=== PATIENT | female | born 1970 | race Caucasian/White ===

== ENCOUNTER 2018-04-26 05:50 | Emergency (ER) | payer BC, OTHER ==
[2018-04-26] MEDS ORDERED: Aspirin 81 MG Tab.Chew PO ONE (06:12)
[2018-04-26] MEDS ORDERED: Sodium Chloride 0.9% 10 ML Syringe FLUSH PRN (06:12)
[2018-04-26] MEDS: Nitroglycerin 0.4 MG Tab.SL SL PRN ×2 (06:22→06:36)
[2018-04-26] MEDS ORDERED: Sodium Chloride 0.9% 1,000 ML IV ONE (06:26)
--- NOTE | 2018-04-26 06:34 | EDM.PDOC ---
ED HPI GENERAL MEDICAL PROBLEM - General Chief Complaint: Chest Pain Stated Complaint: chest pain Time Seen by Provider: 04/26/18 06:16 Source of Information: Reports: Patient, Significant Other History Limitations: Reports: No Limitations - History of Present Illness INITIAL COMMENTS - FREE TEXT/NARRATIVE: Patient presents with pressure across upper chest, pain in posterior left shoulder going down back of left arm, dyspnea, diaphoresis and nausea. This started at 0500 after she had done a light workout involving jumping jacks and sit-ups. This is the first workout she has done in several weeks; trying to get back into it. She has never had this before and she is a 1 ppd smoker for 35 years. No heart history. She rates the pressure at 4/10 and shoulder pain 4 /10 at their worst "very uncomfortable" and says the chest pressure has lessened to 2/10 prior to any nitro but after ASA 324mg. 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 Denies: Fever, Chills, Malaise, Weakness HEENT: Denies: Ear Pain, Throat Pain, Vision Change Respiratory: Reports: Shortness of Breath, Cough Cardiovascular: Reports: Chest Pain, Lightheadedness. Denies: Syncope Endocrine: Denies: Fatigue GI/Abdominal: Reports: Nausea. Denies: Abdominal Pain, Vomiting : Reports: No Symptoms Musculoskeletal: Reports: Shoulder Pain, Arm Pain, Back Pain. Denies: Neck Pain , Hand Pain, Leg Pain, Foot Pain Skin: Reports: Diaphoresis. Denies: Cyanosis, Jaundice, Mottled, Pallor Neurological: Denies: Confusion, Dizziness, Headache, Seizure, Syncope, Difficulty Walking, Change in Speech Psychiatric: Denies: Agitation, Anxiety, Confusion ED EXAM, GENERAL - Physical Exam Exam: See Below Exam Limited By: No Limitations General Appearance: Alert, WD/WN, Mild Distress Eye Exam: Bilateral Eye: EOMI, Normal Inspection, PERRL Ears: Normal External Exam, Hearing Grossly Normal Nose: Normal Inspection, No Blood Throat/Mouth: Normal Inspection, Normal Lips, Normal Voice, No Airway Compromise Head: Atraumatic, Normocephalic Neck: Normal Inspection, Full Range of Motion Respiratory/Chest: No Respiratory Distress, Lungs Clear, Normal Breath Sounds, No Accessory Muscle Use, Chest Non-Tender (palpation doesn't reproduce or exacerbate symptoms) Cardiovascular: Normal Peripheral Pulses, Regular Rate, Rhythm, No Murmur Peripheral Pulses: 2+: Carotid (L), Carotid (R), Radial (L), Radial (R) GI/Abdominal: Soft, No Distention Back Exam: Normal Inspection, Full Range of Motion Extremities: Normal Inspection, Normal Range of Motion, Non-Tender Neurological: Alert, Oriented, Normal Cognition, No Motor/Sensory Deficits Psychiatric: Normal Affect, Normal Mood, Anxious (mild) Skin Exam: Warm, Dry, Intact, Normal Color, No Rash Course - Vital Signs Last Recorded V/S: Last Vital Signs Temp 97.3 F 04/26/18 06:05 Pulse 64 04/26/18 06:55 Resp 18 04/26/18 06:55 BP 107/67 04/26/18 06:55 Pulse Ox 98 04/26/18 06:55 - Orders/Labs/Meds Orders: Active Orders 24 hr Category Date Time Status EKG Documentation Completion [RC] ASDIRECTED Care 04/26/18 06:11 Active CXR [Chest 1V Frontal] [CR] Stat Exams 04/26/18 06:47 Ordered Nitroglycerin [Nitrostat] Med 04/26/18 06:11 Active 0.4 mg SL Q5M PRN Sodium Chloride 0.9% [Saline Flush] Med 04/26/18 06:12 Active 10 ml FLUSH Q8HR PRN Saline Lock Insert [OM.PC] Routine Oth 04/26/18 06:12 Ordered EKG 12 Lead [EK] Routine Ther 04/26/18 06:10 Ordered Medication Orders Nitroglycerin (Nitrostat) 0.4 mg SL Q5M PRN PRN Reason: Chest Pain Last Admin: 04/26/18 06:36 Dose: 0.4 mg Admin: 04/26/18 06:22 Dose: 0.4 mg Sodium Chloride (Saline Flush) 10 ml FLUSH Q8HR PRN PRN Reason: keep vein open Labs: Laboratory Tests 04/26/18 04/26/18 04/26/18 Range/Units 06:15 06:15 06:15 WBC 8.90 (5.00-10.00) 10^3/uL RBC 4.49 (3.80-5.50) 10^6/uL Hgb 14.2 (12.0-16.0) g/dL Hct 41.1 (37.0-47.0) % MCV 91.5 (82.0-92.0) fL MCH 31.6 H (27.0-31.0) pg MCHC 34.5 (32.0-36.0) g/dL RDW 13.9 (11.5-14.5) % Plt Count 269 (150-400) 10^3/uL MPV 10.8 H (7.4-10.4) fL Immature Gran % (Auto) 0.2 (0.0-5.0) % Neut % (Auto) 67.7 (50.0-70.0) % Lymph % (Auto) 21.6 (20.0-40.0) % [place] % (Auto) 9.2 H (2.0-8.0) % Eos % (Auto) 1.2 (1.0-3.0) % Baso % (Auto) 0.1 (0.0-1.0) % Immature Gran # (Auto) 0.02 (0.00-0.50) 10^3/uL Neut # (Auto) 6.02 (2.50-7.00) 10^3/uL Lymph # (Auto) 1.92 (1.00-4.00) 10^3/uL [place] # (Auto) 0.82 H (0.10-0.80) 10^3/uL Eos # (Auto) 0.11 (0.10-0.30) 10^3/uL Baso # (Auto) 0.01 (0.00-0.10) 10^3/uL Sodium 138 (136-145) mmol/L Potassium 3.6 (3.3-5.3) mmol/L Chloride 101 (98-115) mmol/L Carbon Dioxide 24.2 (21.0-32.0) mmol/L Anion Gap 16.4 H (5-15) mmol/L BUN 20 (6-25) mg/dL Creatinine 0.83 (0.51-1.17) mg/dL Est Cr Clr Drug Dosing TNP Estimated GFR (MDRD) > 60 mL/min Glucose 154 H (75 - 99) mg/dL Calcium 9.2 (8.7-10.3) mg/dL Troponin I < 0.04 (0.00-0.070) ng/mL Meds: Medications Generic Name Dose Route Start Last Admin Trade Name Freq PRN Reason Stop Dose Admin Nitroglycerin 0.4 mg 04/26/18 06:11 04/26/18 06:36 Nitrostat SL 0.4 mg Q5M PRN Administration Chest Pain Sodium Chloride 10 ml 04/26/18 06:12 Saline Flush FLUSH Q8HR PRN keep vein open Discontinued Medications Generic Name Dose Route Start Last Admin Trade Name Freq PRN Reason Stop Dose Admin Al Hydroxide/Mg Hydroxide 45 ml 04/26/18 07:15 04/26/18 07:25 Gi Cocktail PO 04/26/18 07:16 45 ml ONETIME ONE Administration Al Hydroxide/Mg Hydroxide Confirm 04/26/18 07:18 04/26/18 07:42 Gi Cocktail Administered 04/26/18 07:19 Not Given Dose 45 ml .ROUTE .STK-MED ONE Aspirin 324 mg 04/26/18 06:12 04/26/18 06:17 Aspirin PO 04/26/18 06:13 324 mg ONETIME ONE Administration Sodium Chloride 1,000 mls @ 999 mls/hr 04/26/18 06:26 04/26/18 06:30 Normal Saline IV 04/26/18 07:26 999 mls/hr .BOLUS ONE Administration Lorazepam 0.5 mg 04/26/18 08:00 04/26/18 08:11 Ativan PO 04/26/18 08:01 0.5 mg ONETIME ONE Administration Morphine Sulfate 5 mg 04/26/18 06:45 Morphine IVPUSH 04/26/18 06:46 ONETIME ONE Morphine Sulfate 4 mg 04/26/18 06:49 04/26/18 06:55 Morphine IVPUSH 04/26/18 06:50 4 mg ONETIME ONE Administration Nitroglycerin 0.1 mg 04/26/18 07:11 04/26/18 07:43 Nitro-Dur 0.1 Mg/Hr TRDERM 04/26/18 07:12 0.1 mg ONETIME ONE Administration - Re-Assessments/Exams Free Text/Narrative Re-Assessment/Exam: 04/26/18 06:45 Pain/pressure in chest started to go back up and is 3/10 with the back/shoulder pain still 4/10. No relief from nitro x 2, will give morphine 5 mg and get CXR. 04/26/18 07:[address] Rico, refrigerating engineer head at [facility] in [place], who advised a nitro .1mg patch and if not helping to try a GI cocktail to help determine etiology. 04/26/18 08:03 GI cocktail showed no improvement so nitro patch was placed. Discussed case with Dr. James, hospitalist, who accepted for transfer to [facility] in [place]. Had discussed findings and treatment options with patient who agrees with plan. 04/26/18 08:15 Pain in chest feels quite a bit better and back/shoulder pain is down to 2/10 but still uncomfortable. Waiting salesperson art objects back from [place] on bed placement. Departure - Departure Time of Disposition: 08:05 Disposition: DC/Tfer to Acute Hospital 02 Reason for Transfer *Q: Other Condition: Good Clinical Impression: Unstable angina Chest pain Qualifiers: Ischemic chest pain type: unstable angina pectoris Forms: ED Department Discharge - My Orders Last 24 Hours: My Active Orders 04/26/18 06:10 EKG 12 Lead [EK] Routine 04/26/18 06:11 EKG Documentation Completion [RC] ASDIRECTED Nitroglycerin [Nitrostat] 0.4 mg SL Q5M PRN 04/26/18 06:12 Sodium Chloride 0.9% [Saline Flush] 10 ml FLUSH Q8HR PRN Saline Lock Insert [OM.PC] Routine 04/26/18 06:47 CXR [Chest 1V Frontal] [CR] Stat - Assessment/Plan Last 24 Hours: My Active Orders 04/26/18 06:10 EKG 12 Lead [EK] Routine 04/26/18 06:11 EKG Documentation Completion [RC] ASDIRECTED Nitroglycerin [Nitrostat] 0.4 mg SL Q5M PRN 04/26/18 06:12 Sodium Chloride 0.9% [Saline Flush] 10 ml FLUSH Q8HR PRN Saline Lock Insert [OM.PC] Routine 04/26/18 06:47 CXR [Chest 1V Frontal] [CR] Stat
[2018-04-26] MEDS ORDERED: Morphine 10 MG/ML Syringe IVPUSH ONE (06:45)
[2018-04-26 06:46] LABS: ANION GAP 16.4 mmol/L (5-15); CHLORIDE,CL 101 mmol/L (98-115); SODIUM,NA 138 mmol/L (136-145)
[2018-04-26] MEDS ORDERED: Morphine 4 MG/ML Syringe IVPUSH ONE (06:49)
[2018-04-26] MEDS ORDERED: Nitroglycerin 0.1 MG/HR Transdermal Patch TRDERM ONE (07:11)
[2018-04-26] MEDS ORDERED: GI Cocktail 45 ML BOTTLE PO ONE (07:15)
[2018-04-26] MEDS ORDERED: GI Cocktail 45 ML BOTTLE ONE (07:18)
[2018-04-26] MEDS ORDERED: LORazepam 0.5 MG Tab PO ONE (08:00)
[2018-04-26 08:25] VITALS: BP 108/66
--- NOTE | 2018-04-26 08:37 | CR ---
[id number] RAD/RAD Chest PA or AP 1V EXAM: SINGLE VIEW CHEST. INDICATION: CHEST PAIN COMPARISON: NO PREVIOUS SIMILAR EXAM IS AVAILABLE. FINDINGS: The lungs are clear and somewhat hyperaerated. The cardiac silhouette is upper normal. There is an old fracture of the left sixth rib. IMPRESSION: NO ACUTE PROCESS. Sandro Harden MD 04/26/18 0836 Thank you for allowing us to participate in the care of your patient.
== END 2018-04-26 09:02 ==
LOC: KA.ED 05:50
DX: I20.0 Unstable angina (principal); F41.9 Anxiety disorder, unspecified; F32.9 Major depressive disorder, single episode, unspecified; F17.210 Nicotine dependence, cigarettes, uncomplicated; Z91.013 Allergy to seafood; Z79.899 Other long term (current) drug therapy
CPT/HCPCS: 36415; 71045; 80048; 84484; 85025; 93005; 96361; 96374; 99285; A9270; J2270; J7030

== ENCOUNTER 2019-11-18 19:17 | Emergency (ER) | payer BC ==
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
[2019-11-18 20:52] VITALS: BP 105/54; PULSE 62
[2019-11-18 20:56] LABS: ANION GAP 12.6 mmol/L (5-15); CHLORIDE,CL 106 mmol/L (98-115); SODIUM,NA 143 mmol/L (136-145)
== END 2019-11-18 21:22 | disposition home or self-care (01) ==
LOC: KA.ED 19:17
DX: R20.2 Paresthesia of skin (principal); I25.2 Old myocardial infarction; F17.210 Nicotine dependence, cigarettes, uncomplicated; Z91.041 Radiographic dye allergy status; Z98.51 Tubal ligation status; Z98.890 Other specified postprocedural states
CPT/HCPCS: 36415; 80048; 84484; 85025; 93005; 99284; 99284-25